=== PATIENT | female | born 1970 | race Caucasian/White ===

== ENCOUNTER 2017-10-07 05:02 | Emergency (ER) | payer OTHER ==
[~2017-10-07] VITALS: Ht 172.7 cm; Wt 70.0 kg
[2017-10-07 06:01] LABS: HEMATOCRIT 36.7 % (36.0-46.0); HEMOGLOBIN 12.6 G/DL (11.9-15.5); MCH 30.7 PG (29.0-34.0); MCHC 34.3 G/DL (30.0-36.0); MCV 89.5 FL (83-99); PLATELET COUNT 236 K/uL (156-360); RBC DIS.WIDTH-CV 12.8 % (11.8-14.6); RBC DIS.WIDTH-SD 42.1 % (39-53)
[2017-10-07 06:13] LABS: ALBUMIN 4.1 g/dL (3.2-4.8); CHLORIDE 107 mEq/L (99-109); POTASSIUM 4.1 mEq/L (3.7-5.4); SODIUM 138 mEq/L (136-147)
[2017-10-07 06:15] LABS: GLUCOSE 97 mg/dL (70-99); TOTAL PROTEIN 7.3 g/dL (6.4-8.3)
[2017-10-07 06:17] LABS: TOTAL BILIRUBIN < 0.1 mg/dL (0.0-1.0)
[2017-10-07 06:19] LABS: ALKALINE PHOSPHATASE 54 IU/L (3-129); CREATININE 0.7 mg/dL (0.6-1.3); GFR ESTIMATE (CALCULATED) > 59 mL/min/
[2017-10-07 06:20] LABS: UREA NITROGEN (BUN) 10 mg/dL (9-23)
[2017-10-07 06:21] LABS: AST (GOT) 38 IU/L (2-34)
[2017-10-07 06:22] LABS: ALT (GPT) 21 IU/L (3-49)
[2017-10-07 06:29] LABS: QUANTITATIVE HCG < 4.0 MIU/ML
[2017-10-07 06:45] LABS: LIPASE 39 U/L (1.0-51.0)
[2017-10-07 09:03] LABS: APPEARANCE CLEAR ((CLEAR)); BILIRUBIN NEGATIVE; BLOOD MODERATE; COLOR STRAW ((YELLOW)); GLUCOSE (STRIP) NEGATIVE; KETONES NEGATIVE; LEUKOCYTES NEGATIVE; NITRITE NEGATIVE; PROTEIN (STRIP) NEGATIVE; SPECIFIC GRAVITY 1.011 (1.000-1.030); UROBILINOGEN 0.2 MG/DL (0.2-1.0)
[2017-10-07] MEDS ORDERED: CIPRO500 MG PO (09:19)
[2017-10-07] MEDS ORDERED: IMODIUM A-D2 M2 PO (09:19)
[2017-10-07 09:24] LABS: BACTERIA NONE SEEN /HPF; EPITHELIAL CELLS NONE SEEN /HPF; MUCUS TRACE /LPF; RED BLOOD CELLS 0-5 /HPF (0-5); UCUL ADDED? NO; WHITE BLOOD CELLS 0-5 /HPF (0-5)
[2017-10-07 10:35] VITALS: BP 135/74
== END 2017-10-07 10:47 | disposition home or self-care (01) ==
LOC: EME 05:02
DX: R19.7 Diarrhea, unspecified (principal)
CPT/HCPCS: 80053; 81003; 83690; 84702; 85027; 87493; 99281; 99285; J7030